=== PATIENT | female | born 1950 | race Two or more races ===

== ENCOUNTER 2019-11-06 07:40 | Outpatient (CLI) | payer OTHER ==
[~2019-11-06 07:40] MED LIST: ENALAPRIL-HCTZ1 TAB; ETODOLAC500 M1 PO; LOSARTAN POTASS50 MG; METFORMIN HCL1000 MG; METFORMIN HCL1000 MG PO; MIGRALAM CAPSUL1 CAP PO; NEURONTIN300 MG PO; OMEPRAZOLE10 MG; VASERETIC 10-251 TA1 PO; ZIAC 10/6.25 MG1 TAB; ZOCOR40 MG
== END 2019-11-06 07:46 | disposition home or self-care (01) ==
LOC: NUCLEAR 07:40
DX: E11.9 Type 2 diabetes mellitus without complications (principal); E78.89 Other lipoprotein metabolism disorders; E03.8 Other specified hypothyroidism; M51.86 Other intervertebral disc disorders, lumbar region; K21.9 Gastro-esophageal reflux disease without esophagitis; E78.49 Other hyperlipidemia; M79.7 Fibromyalgia; K57.30 Diverticulosis of large intestine without perforation or abscess without bleeding; M81.0 Age-related osteoporosis without current pathological fracture; M81.8 Other osteoporosis without current pathological fracture; G44.1 Vascular headache, not elsewhere classified; G60.8 Other hereditary and idiopathic neuropathies; I50.20 Unspecified systolic (congestive) heart failure
CPT/HCPCS: 78452; 93017; A9500; J0153

== ENCOUNTER 2020-07-26 09:54 | Outpatient (CLI) | payer OTHER | END 2020-07-26 09:59 | disposition home or self-care (01) | LOC: LAB 09:54 | DX: R10.84 Generalized abdominal pain (principal) ==

== ENCOUNTER 2020-07-28 09:32 | Outpatient (CLI) | payer OTHER | END 2020-07-28 09:43 | disposition home or self-care (01) | LOC: TOM 09:32 | PROVIDERS: ATTEND Internal Medicine Gastroenterology | DX: R10.84 Generalized abdominal pain (principal) | CPT/HCPCS: 74160; Q9965 ==

== ENCOUNTER → 2020-10-04 | Outpatient (CLI) | payer OTHER | END | disposition home or self-care (01) | LOC: SONOGRAMA 07:42 → MAMO-SONO 07:45 | PROVIDERS: ATTEND Internal Medicine Gastroenterology | DX: K82.8 Other specified diseases of gallbladder (principal); R10.84 Generalized abdominal pain ==

== ENCOUNTER 2021-01-05 09:00 | Outpatient (CLI) | payer OTHER | END 2021-01-05 09:10 | disposition home or self-care (01) | LOC: LAB 09:00 | PROVIDERS: ATTEND Internal Medicine Gastroenterology | DX: K62.5 Hemorrhage of anus and rectum (principal); D53.1 Other megaloblastic anemias, not elsewhere classified; R10.84 Generalized abdominal pain; D50.8 Other iron deficiency anemias; D50.0 Iron deficiency anemia secondary to blood loss (chronic) ==

== ENCOUNTER 2021-01-05 10:02 | Outpatient (CLI) | payer OTHER | END 2021-01-05 10:31 | disposition home or self-care (01) | LOC: SONOGRAMA 10:02 | PROVIDERS: ATTEND Internal Medicine Gastroenterology | DX: K82.4 Cholesterolosis of gallbladder (principal) ==

== ENCOUNTER 2022-05-08 11:15 | Emergency (ER) | payer OTHER ==
[~2022-05-08] VITALS: Ht 157.5 cm; Wt 79.4 kg
[2022-05-08] MEDS ORDERED: NORFLEX100MG PO (14:14)
== END 2022-05-08 14:36 | disposition home or self-care (01) ==
LOC: ER 11:15
DX: M54.50 Low back pain, unspecified (principal); M25.562 Pain in left knee; E11.9 Type 2 diabetes mellitus without complications; Z79.84 Long term (current) use of oral hypoglycemic drugs; I10 Essential (primary) hypertension; Z88.6 Allergy status to analgesic agent

== ENCOUNTER 2022-11-20 13:27 | Emergency (ER) | payer OTHER ==
[~2022-11-20] VITALS: Ht 157.5 cm; Wt 77.1 kg
[~2022-11-20 13:27] MED LIST changes: +NORFLEX100MG PO
== END 2022-11-20 21:10 | disposition left against medical advice (07) ==
LOC: ER 13:27
DX: B34.9 Viral infection, unspecified (principal); Z20.822 Contact with and (suspected) exposure to COVID-19; Z88.6 Allergy status to analgesic agent

== ENCOUNTER 2023-05-25 09:28 | Emergency (ER) | payer OTHER ==
[~2023-05-25] VITALS: Ht 157.5 cm; Wt 79.8 kg
== END 2023-05-25 14:31 | disposition home or self-care (01) ==
LOC: ER 09:28
DX: R10.84 Generalized abdominal pain (principal); R10.2 Pelvic and perineal pain; I10 Essential (primary) hypertension